=== PATIENT | female | born 1985 | race Hispanic/Latino ===

== ENCOUNTER 2020-03-19 18:35 | Inpatient (IN) | payer MEDICAID ==
[~2020-03-19] VITALS: Ht 149.9 cm; Wt 119.7 kg
[2020-03-19] MEDS ORDERED: AMPICILLIN 2GM+NS 100ML 100 ML IV SCH (21:00)
[2020-03-19 21:06] LABS: APPEARANCE,URINE Clear (CLEAR); BILIRUBIN,URINE Negative (NEGATIVE); COLOR,URINE Yellow (YELLOW); GLUCOSE, URINE (UA) Negative (NEGATIVE); KETONES,URINE Negative (NEGATIVE); LEUKOCYTE ESTERASE ,URINE Moderate (NEGATIVE); NITRATE,URINE Negative (NEGATIVE); OCCULT BLOOD,URINE Negative (NEGATIVE); PH,URINE 6.5 (5.0-8.0); PROTEIN,URINE Trace mg/dL (NEGATIVE)
[2020-03-19 21:17] LABS: RBC,URINE None Seen /HPF (0-1)
[2020-03-19 21:18] LABS: BACTERIA,URINE Few /HPF (None Seen)
[2020-03-19] MEDS: LACTATED RINGERS 1000ML 1,000 ML IV PRN (21:42)
[2020-03-19 22:09] LABS: HEMATOCRIT 37.8 % (36-48); MEAN CORPUSCULAR HEMOGLOBIN 29.6 pg (27.0-33.0); MEAN CORPUSCULAR HGB CONC 32.5 g/dL (32.0-36.0); MEAN CORPUSCULAR VOLUME 91.1 fL (79-99); RED BLOOD CELL COUNT(AUTO) 4.15 MIL/uL (4.00-5.50); RED CELL DISTRIBUTION WIDTH 14.7 % (11.0-15.5); WHITE BLOOD COUNT (AUTO) 8.6 K/uL (4.8-10.8)
[2020-03-20 01:01] VITALS: BP 132/65
[2020-03-20] MEDS ORDERED: DIPH25 PO (01:04)
[2020-03-20] MEDS ORDERED: PREN1TAB80 PO (01:05)
[2020-03-20] MEDS: AMPICILLIN 1GM+NS 50ML 50 ML IV SCH ×3 (01:05→08:38)
[2020-03-20] MEDS ORDERED: OXYTOCIN 10 USP UNITS/ML 20 UNIT in LACTATED RINGERS 1000ML 1,000 ML IV SCH (02:00)
[2020-03-20] MEDS: LACTATED RINGERS 1000ML 1,000 ML IV PRN ×2 (05:41→08:38)
[2020-03-20] MEDS ORDERED: EPHEDRINE SULFATE 50 MG/ML AMPULE IVP PRN (08:30)
[2020-03-20] MEDS ORDERED: LACTATED RINGERS 500 ML 500 ML IV PRN (08:30)
[2020-03-20] MEDS ORDERED: ROPIVACAINE 0.2% 100ML VIAL 100 ML EP SCH (08:30)
[2020-03-20] MEDS ORDERED: NALOXONE HCL 0.4 MG/1 ML ML IV PRN (08:30)
[2020-03-20] MEDS: OXYTOCIN-LR 20 UNITS/1000 ML 1,000 ML IV SCH ×2 (08:38→17:52)
[2020-03-20] MEDS ORDERED: PROMETHAZINE HCL 25 MG/ML 1ML AMPULE IM SCH (09:15)
[2020-03-20] MEDS ORDERED: MEPERIDINE-PF 50 MG/ML SYG IVP SCH (09:15)
[2020-03-20] MEDS ORDERED: LIDOCAINE 2%-EPI 1:200,000 20 ML VIAL IJ ONE (11:15)
[2020-03-20] MEDS ORDERED: LIDOCAINE PF 2% 5ML ABBOJECT ONE (13:47)
[2020-03-20] MEDS ORDERED: CALDOLOR 800MG+NS 250ML 250 ML IV PRN (14:00)
[2020-03-20] MEDS ORDERED: CEFAZOLIN SODIUM 1 GM VIAL IVP PRN (14:00)
[2020-03-20] MEDS ORDERED: LANOLIN 30GM OINTMENT TP PRN (17:15)
[2020-03-20] MEDS ORDERED: DIPH,PERTUSS(ACELL),TET VAC/PF 0.5 ML VIAL IM PRN (17:15)
[2020-03-20] MEDS ORDERED: WITCH HAZEL 1 PAD TP PRN (17:15)
[2020-03-20] MEDS ORDERED: BENZOCAINE/LANOLIN/ALOE VERA 60 ML AEROSOL TP PRN (17:15)
[2020-03-20] MEDS ORDERED: MEASLES/MUMPS/RUBELLA VACCINE, LIVE 0.5 ML/VIAL SQ PRN (17:15)
[2020-03-20] MEDS ORDERED: ACETAMINOPHEN 325 MG TAB PO PRN (17:15)
[2020-03-20] MEDS ORDERED: CALDOLOR 800MG+NS 250ML 250 ML IV SCH (17:45)
[2020-03-20] MEDS: ACETAMINOPHEN-CODEINE 300/30MG TAB PO PRN ×2 (18:44→22:51)
[2020-03-20 19:51] VITALS: BP 116/69
[2020-03-20] MEDS: DOCUSATE SODIUM 100 MG CAP PO SCH (21:12)
[2020-03-20 23:48] VITALS: BP 113/57
[2020-03-21] MEDS: IBUPROFEN 600 MG TABLET PO PRN ×2 (02:08→09:53)
[2020-03-21 04:36] VITALS: BP 109/74
[2020-03-21 07:10] VITALS: BP 147/79
[2020-03-21] MEDS: DOCUSATE SODIUM 100 MG CAP PO SCH (09:53)
[2020-03-21 11:01] VITALS: BP 127/73
[2020-03-21 16:43] VITALS: BP 115/66
--- NOTE | 2020-03-21 17:55 | NUR ---
DISCHARGE PT LEFT UNIT VIA WHEELCHAIR, WITH BABY IN ARMS, ACCOMPANIED BY SIGNIFICANT OTHER. DENIED PAIN AND HAD NO COMPLAINTS. BABY STRAPPED IN CAR SEAT. PT AND BABY TRANSPORTED BY PERSONAL VEHICLE.
[2020-03-22 13:53] LABS: HEPATITIS Bs ANTIGEN SCREEN P Negative (Negative)
== END 2020-03-21 17:55 | disposition home or self-care (01) | DRG 560 ==
LOC: LDH 20:14 → WSH 03-20 19:35
PROVIDERS: ADMIT Obstetrics & Gynecology; ATTEND Obstetrics & Gynecology
PROC: 10E0XZZ Delivery of Products of Conception, External Approach (ICD-10-PCS; principal; 2020-03-20)
PROC: 10907ZC Drainage of Amniotic Fluid, Therapeutic from Products of Conception, Via Natural or Artificial Opening (ICD-10-PCS; 2020-03-20)
PROC: 3E033VJ Introduction of Other Hormone into Peripheral Vein, Percutaneous Approach (ICD-10-PCS; 2020-03-20)
PROC: 3E0R3BZ Introduction of Anesthetic Agent into Spinal Canal, Percutaneous Approach (ICD-10-PCS; 2020-03-20)
PROC: 00HU33Z Insertion of Infusion Device into Spinal Canal, Percutaneous Approach (ICD-10-PCS; 2020-03-20)
PROC: 3E0234Z Introduction of Serum, Toxoid and Vaccine into Muscle, Percutaneous Approach (ICD-10-PCS; 2020-03-20)
PROC: 3E0134Z Introduction of Serum, Toxoid and Vaccine into Subcutaneous Tissue, Percutaneous Approach (ICD-10-PCS; 2020-03-20)
DX: O99.824 Streptococcus B carrier state complicating childbirth (principal); Z37.0 Single live birth; E66.01 Morbid (severe) obesity due to excess calories; O99.214 Obesity complicating childbirth; Z23 Encounter for immunization; Z3A.38 38 weeks gestation of pregnancy
CPT/HCPCS: 36415; 76805; 76815; 81001; 85027; 86592; 86850; 86900; 86901; 87088; 87340; A4314; A4351; A4606; G0378; J0290; J1741; J2001; J2175; J2550; J2590; J3490; J7120